=== PATIENT | male | born 1960 | race Caucasian/White ===

== ENCOUNTER → 2024-06-01 06:10 | Day surgery (SDC) | payer OTHER, SELFPAY | LOC: GI 06:10 | PROVIDERS: ATTENDING PHYSICIAN Specialist; FAMILY PHYSICIAN Family Medicine | DX: Z12.11 Encounter for screening for malignant neoplasm of colon (principal); Z86.010 Personal history of colon polyps; Z53.8 Procedure and treatment not carried out for other reasons | CPT/HCPCS: G0105 ==

== ENCOUNTER → 2024-07-05 06:17 | Day surgery (SDC) | payer OTHER, SELFPAY | LOC: GI 06:17 | PROVIDERS: ATTENDING PHYSICIAN Specialist; FAMILY PHYSICIAN Family Medicine | DX: Z12.11 Encounter for screening for malignant neoplasm of colon (principal); Z86.010 Personal history of colon polyps; K63.5 Polyp of colon | CPT/HCPCS: 45380; 88305 ==